=== PATIENT | male | born 1990 | race Caucasian/White ===

== ENCOUNTER 2022-10-14 14:58 | Emergency (ER) | payer MEDICAID ==
[~2022-10-14] VITALS: Ht 172.7 cm; Wt 122.7 kg
[~2022-10-14 14:58] MED LIST: NO MEDS
[2022-10-14 17:18] VITALS: BP 109/62
== END 2022-10-14 19:37 | disposition home or self-care (01) ==
LOC: EMS 15:01
DX: S83.91XA Sprain of unspecified site of right knee, initial encounter (principal); X50.1XXA Overexertion from prolonged static or awkward postures, initial encounter; Y93.66 Activity, soccer; Y92.89 Other specified places as the place of occurrence of the external cause; Y99.8 Other external cause status
CPT/HCPCS: 29505; 99283